=== PATIENT | female | born 1980 | race Caucasian/White ===

== ENCOUNTER 2018-10-28 14:48 | Emergency (ER) | payer BC ==
[2018-10-28 15:39] LABS: Urine Appearance Clear; Urine Blood 3+ (Negative); Urine Color Yellow; Urine Ketones Negative (Negative); Urine Protein Negative (Negative); Urine Red Blood Cell 2+(6-10/hpf) (Absent); Urine Specific Gravity 1.018 (1.010-1.030); Urine Urobilinogen Negative (Negative); Urine White Blood Cell Trace(0-5/hpf) (Absent)
[2018-10-28 16:36] LABS: ABS Basophils 0.1 10^3/ul (0-0.2); ABS Eosinophils 0.1 10^3/ul (0-0.6); ABS Lymphocytes 2.7 10^3/ul (1.0-4.8); ABS Monocytes 0.5 10^3/ul (0-0.8); ABS Neutrophils 6.8 10^3/ul (1.5-7.7); ABS Nucleated RBC 0 10^3/ul; Eosinophil % 1.1 %; Hematocrit 38 % (35-47); Lymphocyte % 26.8 %; Mean Corpuscular HGB Conc 34 g/dl (31-36); Mean Corpuscular Hemoglobin 31 pg (27-31); Mean Corpuscular Volume 93 fL (80-97); Mean Platelet Volume 8.1 fL (7.4-10.4); Nucleated Red Blood Cells % 0.1; Platelet Count 350 10^3/ul (150-450); Red Blood Count 4.14 10^6/ul (4.00-5.40); Red Cell Distribution Width 12 % (10.5-15); White Blood Count 10.2 10^3/ul (3.5-10.8)
[2018-10-28 16:48] LABS: INR 1.02 (0.77-1.02)
[2018-10-28 16:53] LABS: EGFR Non-African American 97.9 (>60)
--- NOTE | 2018-10-28 17:21 | ED ---
GI/ HPI - History of Current Complaint Chief Complaint: EDOBProblems Time Seen by Provider: 10/28/18 17:03 Stated Complaint: ABD PAIN Pain Intensity: 4 - Allergy/Home Medications Allergies/Adverse Reactions: Allergies Allergy/AdvReac Type Severity Reaction Status Date / Time Penicillins Allergy Hives Verified 10/28/18 16:57 Home Medications: Home Medications NK [No Home Medications Reported] 10/28/18 [History Confirmed 10/28/18] PMH/Surg Hx/FS Hx/Imm Hx Infectious Disease History: No Infectious Disease History: Denies: Traveled Outside the [place] in Last 30 Days - Social History Alcohol Use: None Substance Use Type: Reports: None Smoking Status (MU): Former Smoker Physical Exam Vital Signs On Initial Exam: Initial Vitals Temp Pulse Resp BP Pulse Ox 98.7 F 82 18 105/43 99 10/28/18 14:50 10/28/18 14:50 10/28/18 14:50 10/28/18 14:50 10/28/18 14:50 Diagnostics - Vital Signs Vital Signs Temp Pulse Resp BP Pulse Ox 10/28/18 16:14 99.8 F 72 16 91/46 100 10/28/18 14:50 98.7 F 82 18 105/43 99 - Laboratory Lab Results: Lab Results 10/28/18 10/28/18 10/28/18 Range/Units 14:55 16:24 16:24 WBC 10.2 (3.5-10.8) 10^3/ul RBC 4.14 (4.00-5.40) 10^6/ul Hgb 13.0 (12.0-16.0) g/dl Hct 38 (35-47) % MCV 93 (80-97) fL MCH 31 (27-31) pg MCHC 34 (31-36) g/dl RDW 12 (10.5-15) % Plt Count 350 (150-450) 10^3/ul MPV 8.1 (7.4-10.4) fL Neut % (Auto) 66.4 % Lymph % (Auto) 26.8 % [place] % (Auto) 5.1 % Eos % (Auto) 1.1 % Baso % (Auto) 0.6 % Absolute Neuts (auto) 6.8 (1.5-7.7) 10^3/ul Absolute Lymphs (auto) 2.7 (1.0-4.8) 10^3/ul Absolute Monos (auto) 0.5 (0-0.8) 10^3/ul Absolute Eos (auto) 0.1 (0-0.6) 10^3/ul Absolute Basos (auto) 0.1 (0-0.2) 10^3/ul Absolute Nucleated RBC 0 10^3/ul Nucleated RBC % 0.1 INR (Anticoag Therapy) 1.02 (0.77-1.02) APTT 29.6 (26.0-36.3) seconds Sodium (135-145) mmol/L Potassium (3.5-5.0) mmol/L Chloride (101-111) mmol/L Carbon Dioxide (22-32) mmol/L Anion Gap (2-11) mmol/L BUN (6-24) mg/dL Creatinine (0.51-0.95) mg/dL Est GFR ( Amer) (>60) Est GFR (Non-Af Amer) (>60) BUN/Creatinine Ratio (8-20) Glucose (70-100) mg/dL Lactic Acid (0.5-2.0) mmol/L Calcium (8.6-10.3) mg/dL Total Bilirubin (0.2-1.0) mg/dL AST (13-39) U/L ALT (7-52) U/L Alkaline Phosphatase (34-104) U/L Total Protein (6.4-8.9) g/dL Albumin (3.2-5.2) g/dL Globulin (2-4) g/dL Albumin/Globulin Ratio (1-3) Urine Color Yellow Urine Appearance Clear Urine pH 6.0 (5-9) Ur Specific [place] 1.018 (1.010-1.030) Urine Protein Negative (Negative) Urine Ketones Negative (Negative) Urine Blood 3+ A (Negative) Urine Nitrate Negative (Negative) Urine Bilirubin Negative (Negative) Urine Urobilinogen Negative (Negative) Ur Leukocyte Esterase Negative (Negative) Urine WBC (Auto) Trace(0-5/hpf) (Absent) Urine RBC (Auto) 2+(6-10/hpf) A (Absent) Ur Squamous Epith Cells Present A (Absent) Urine Bacteria Absent (Absent) Urine Glucose Negative (Negative) Urine Ascorbic Acid * A (Negative) Blood Type Antibody Screen 10/28/18 10/28/18 10/28/18 Range/Units 16:24 16:24 16:24 WBC (3.5-10.8) 10^3/ul RBC (4.00-5.40) 10^6/ul Hgb (12.0-16.0) g/dl Hct (35-47) % MCV (80-97) fL MCH (27-31) pg MCHC (31-36) g/dl RDW (10.5-15) % Plt Count (150-450) 10^3/ul MPV (7.4-10.4) fL Neut % (Auto) % Lymph % (Auto) % [place] % (Auto) % Eos % (Auto) % Baso % (Auto) % Absolute Neuts (auto) (1.5-7.7) 10^3/ul Absolute Lymphs (auto) (1.0-4.8) 10^3/ul Absolute Monos (auto) (0-0.8) 10^3/ul Absolute Eos (auto) (0-0.6) 10^3/ul Absolute Basos (auto) (0-0.2) 10^3/ul Absolute Nucleated RBC 10^3/ul Nucleated RBC % INR (Anticoag Therapy) (0.77-1.02) APTT (26.0-36.3) seconds Sodium 135 (135-145) mmol/L Potassium 3.7 (3.5-5.0) mmol/L Chloride 104 (101-111) mmol/L Carbon Dioxide 28 (22-32) mmol/L Anion Gap 3 (2-11) mmol/L BUN 9 (6-24) mg/dL Creatinine 0.68 (0.51-0.95) mg/dL Est GFR ( Amer) 118.5 (>60) Est GFR (Non-Af Amer) 97.9 (>60) BUN/Creatinine Ratio 13.2 (8-20) Glucose 90 (70-100) mg/dL Lactic Acid 0.8 (0.5-2.0) mmol/L Calcium 9.4 (8.6-10.3) mg/dL Total Bilirubin 0.30 (0.2-1.0) mg/dL AST 16 (13-39) U/L ALT 16 (7-52) U/L Alkaline Phosphatase 47 (34-104) U/L Total Protein 7.1 (6.4-8.9) g/dL Albumin 4.5 (3.2-5.2) g/dL Globulin 2.6 (2-4) g/dL Albumin/Globulin Ratio 1.7 (1-3) Urine Color Urine Appearance Urine pH (5-9) Ur Specific [place] (1.010-1.030) Urine Protein (Negative) Urine Ketones (Negative) Urine Blood (Negative) Urine Nitrate (Negative) Urine Bilirubin (Negative) Urine Urobilinogen (Negative) Ur Leukocyte Esterase (Negative) Urine WBC (Auto) (Absent) Urine RBC (Auto) (Absent) Ur Squamous Epith Cells (Absent) Urine Bacteria (Absent) Urine Glucose (Negative) Urine Ascorbic Acid (Negative) Blood Type O Positive Antibody Screen Negative Result Diagrams: 10/28/18 16:24 10/28/18 16:24 Lab Statement: Any lab studies that have been ordered have been reviewed, and results considered in the medical decision making process. Discharge - Discharge Plan Referrals: No Primary Care Phys,NOPCP [Primary Care Provider] - - Attestation Statements Document Initiated by Scribe: Yes Documenting Scribe: Katelynn Tafoya Provider For Whom Scribe is Documenting (Include Credential): Dr. Beatriz Venegas MD Scribe Attestation: Katelynn Allen , scribed for Dr. Beatriz Venegas MD on 10/28/18 at 1720.
--- NOTE | 2018-10-28 17:26 | ED ---
Abdominal Pain/Female - HPI Summary HPI Summary: The pt is a 38 y/o female with a presenting to [facility] c/o vaginal bleeding since yesterday night. She is A2. She had a "miscarriage" in August 2018 at approximately 5 weeks, but did not have another cycle until she had a positive test, so she is estimating that this might be 8 weeks. The was confirmed by a positive home test. She has an appointment with her House Father in 2 days but has not seen them yet for this . She notes abd cramping and pain, dark chin blood clots, dizziness, nausea, GUERRERO, pelvic pain and back pain. The discomfort is rated 4/10 in severity. She last changed her pad 2 hours ago. She reports a PMHx of Herpes but denies a hx of ectopic , reproductive surgeries and ovarian cysts. Home Medications Medication Instructions Recorded Confirmed Type NK [No Home Medications Reported] 10/28/18 10/28/18 History - History of Current Complaint Chief Complaint: EDOBProblems Stated Complaint: ABD PAIN Time Seen by Provider: 10/28/18 17:03 Hx Obtained From: Patient Hx Last Menstrual Period: July 2018 ?: Yes - Based on a positive home test Onset/Duration: Sudden Onset, Lasting Hours, Still Present Timing: Constant Severity Initially: Moderate Severity Currently: Mild Pain Intensity: 4 Pain Scale Used: 0-10 Numeric Location: Diffuse - Lower abd Radiates: Yes Radiates to: Back, Other - Pelvis Character: Cramping Aggravating Factor(s): Nothing Alleviating Factor(s): Nothing Associated Signs and Symptoms: Positive: Vaginal Bleeding, Nausea, Other: - GUERRERO Simlar Episode/Dx as:: miscarriage Allergies/Adverse Reactions: Allergies Allergy/AdvReac Type Severity Reaction Status Date / Time Penicillins Allergy Hives Verified 10/28/18 16:57 Home Medications: Home Medications NK [No Home Medications Reported] 10/28/18 [History Confirmed 10/28/18] PMH/Surg Hx/FS Hx/Imm Hx Previously Healthy: No Endocrine/Hematology History: Denies: Hx Diabetes Cardiovascular History: Denies: Hx Hypercholesterolemia, Hx Hypertension Respiratory History: Denies: Hx Asthma History: Reports: Other Problems/Disorders - Hx of Herpes Sensory History: Denies: Hx Deafness - Cancer History Cancer Type, Location and Year: None reported - Surgical History Surgery Procedure, Year, and Place: none Infectious Disease History: No Infectious Disease History: Denies: Traveled Outside the [place] in Last 30 Days - Family History Known Family History: Positive: Other - [place] Negative: Cardiac Disease, Hypertension, Diabetes - Social History Occupation: Employed Full-time Lives: With Family Alcohol Use: Occasionally Substance Use Type: Reports: None Smoking Status (MU): Former Smoker Review of Systems Constitutional: Other - Positive: Dizziness Cardiovascular: Negative Respiratory: Negative Positive: Abdominal Pain, Nausea Positive: no symptoms reported, other - Positive: Pelvic pain, vaginal bleeding with blood clots Musculoskeletal: Other - Positive: Back pain Skin: Negative Positive: Headache Psychological: Normal All Other Systems Reviewed And Are Negative: Yes Physical Exam - Summary Physical Exam Summary: Appearance: Well-appearing, moderate pain distress, well-nourished Skin: Warm, color reflects adequate perfusion, dry Head: Normal Head/Face inspection, atraumatic Eyes: Conjunctiva clear ENT: Normal inspection Neck: Supple, no nodes, no JVD Respiratory: Lungs clear, normal breath sounds, no respiratory distress Cardio: RRR, No murmur, pulses normal, brisk capillary refill Abdomen: Soft, Tender in the LLQ, Uterus non palpable Bowel sounds: Present Musculoskeletal: Strength Intact/ROM intact, no calf tenderness, no edema. Psychological: Normal Neuro: Alert, muscle tone normal, no focal deficit Triage Information Reviewed: Yes Vital Signs On Initial Exam: Initial Vitals Temp Pulse Resp BP Pulse Ox 98.7 F 82 18 105/43 99 10/28/18 14:50 10/28/18 14:50 10/28/18 14:50 10/28/18 14:50 10/28/18 14:50 Vital Signs Reviewed: Yes Diagnostics - Vital Signs Vital Signs Temp Pulse Resp BP Pulse Ox 10/28/18 16:14 99.8 F 72 16 91/46 100 10/28/18 14:50 98.7 F 82 18 105/43 99 - Laboratory Lab Results: Lab Results 10/28/18 10/28/18 10/28/18 Range/Units 14:55 16:24 16:24 WBC 10.2 (3.5-10.8) 10^3/ul RBC 4.14 (4.00-5.40) 10^6/ul Hgb 13.0 (12.0-16.0) g/dl Hct 38 (35-47) % MCV 93 (80-97) fL MCH 31 (27-31) pg MCHC 34 (31-36) g/dl RDW 12 (10.5-15) % Plt Count 350 (150-450) 10^3/ul MPV 8.1 (7.4-10.4) fL Neut % (Auto) 66.4 % Lymph % (Auto) 26.8 % [place] % (Auto) 5.1 % Eos % (Auto) 1.1 % Baso % (Auto) 0.6 % Absolute Neuts (auto) 6.8 (1.5-7.7) 10^3/ul Absolute Lymphs (auto) 2.7 (1.0-4.8) 10^3/ul Absolute Monos (auto) 0.5 (0-0.8) 10^3/ul Absolute Eos (auto) 0.1 (0-0.6) 10^3/ul Absolute Basos (auto) 0.1 (0-0.2) 10^3/ul Absolute Nucleated RBC 0 10^3/ul Nucleated RBC % 0.1 INR (Anticoag Therapy) 1.02 (0.77-1.02) APTT 29.6 (26.0-36.3) seconds Sodium (135-145) mmol/L Potassium (3.5-5.0) mmol/L Chloride (101-111) mmol/L Carbon Dioxide (22-32) mmol/L Anion Gap (2-11) mmol/L BUN (6-24) mg/dL Creatinine (0.51-0.95) mg/dL Est GFR ( Amer) (>60) Est GFR (Non-Af Amer) (>60) BUN/Creatinine Ratio (8-20) Glucose (70-100) mg/dL Lactic Acid (0.5-2.0) mmol/L Calcium (8.6-10.3) mg/dL Total Bilirubin (0.2-1.0) mg/dL AST (13-39) U/L ALT (7-52) U/L Alkaline Phosphatase (34-104) U/L Total Protein (6.4-8.9) g/dL Albumin (3.2-5.2) g/dL Globulin (2-4) g/dL Albumin/Globulin Ratio (1-3) Urine Color Yellow Urine Appearance Clear Urine pH 6.0 (5-9) Ur Specific [place] 1.018 (1.010-1.030) Urine Protein Negative (Negative) Urine Ketones Negative (Negative) Urine Blood 3+ A (Negative) Urine Nitrate Negative (Negative) Urine Bilirubin Negative (Negative) Urine Urobilinogen Negative (Negative) Ur Leukocyte Esterase Negative (Negative) Urine WBC (Auto) Trace(0-5/hpf) (Absent) Urine RBC (Auto) 2+(6-10/hpf) A (Absent) Ur Squamous Epith Cells Present A (Absent) Urine Bacteria Absent (Absent) Urine Glucose Negative (Negative) Urine Ascorbic Acid * A (Negative) Blood Type Antibody Screen 10/28/18 10/28/18 10/28/18 Range/Units 16:24 16:24 16:24 WBC (3.5-10.8) 10^3/ul RBC (4.00-5.40) 10^6/ul Hgb (12.0-16.0) g/dl Hct (35-47) % MCV (80-97) fL MCH (27-31) pg MCHC (31-36) g/dl RDW (10.5-15) % Plt Count (150-450) 10^3/ul MPV (7.4-10.4) fL Neut % (Auto) % Lymph % (Auto) % [place] % (Auto) % Eos % (Auto) % Baso % (Auto) % Absolute Neuts (auto) (1.5-7.7) 10^3/ul Absolute Lymphs (auto) (1.0-4.8) 10^3/ul Absolute Monos (auto) (0-0.8) 10^3/ul Absolute Eos (auto) (0-0.6) 10^3/ul Absolute Basos (auto) (0-0.2) 10^3/ul Absolute Nucleated RBC 10^3/ul Nucleated RBC % INR (Anticoag Therapy) (0.77-1.02) APTT (26.0-36.3) seconds Sodium 135 (135-145) mmol/L Potassium 3.7 (3.5-5.0) mmol/L Chloride 104 (101-111) mmol/L Carbon Dioxide 28 (22-32) mmol/L Anion Gap 3 (2-11) mmol/L BUN 9 (6-24) mg/dL Creatinine 0.68 (0.51-0.95) mg/dL Est GFR ( Amer) 118.5 (>60) Est GFR (Non-Af Amer) 97.9 (>60) BUN/Creatinine Ratio 13.2 (8-20) Glucose 90 (70-100) mg/dL Lactic Acid 0.8 (0.5-2.0) mmol/L Calcium 9.4 (8.6-10.3) mg/dL Total Bilirubin 0.30 (0.2-1.0) mg/dL AST 16 (13-39) U/L ALT 16 (7-52) U/L Alkaline Phosphatase 47 (34-104) U/L Total Protein 7.1 (6.4-8.9) g/dL Albumin 4.5 (3.2-5.2) g/dL Globulin 2.6 (2-4) g/dL Albumin/Globulin Ratio 1.7 (1-3) Urine Color Urine Appearance Urine pH (5-9) Ur Specific [place] (1.010-1.030) Urine Protein (Negative) Urine Ketones (Negative) Urine Blood (Negative) Urine Nitrate (Negative) Urine Bilirubin (Negative) Urine Urobilinogen (Negative) Ur Leukocyte Esterase (Negative) Urine WBC (Auto) (Absent) Urine RBC (Auto) (Absent) Ur Squamous Epith Cells (Absent) Urine Bacteria (Absent) Urine Glucose (Negative) Urine Ascorbic Acid (Negative) Blood Type O Positive Antibody Screen Negative Result Diagrams: 10/28/18 16:24 10/28/18 16:24 Lab Statement: Any lab studies that have been ordered have been reviewed, and results considered in the medical decision making process. - Ultrasound No standard instances Ultrasound Interpretation Completed By: Radiologist - Transvaginal US IMPRESSION : Intrauterine of unknown viability showing an ultrasound age of 6 weeks 0 days (EVANGELISTA = 06/24/2019). Recommend followup ultrasound in 7-10 days to confirm viability. The ED physician reviewed this radiology report. Re-Evaluation - Re-Evaluation First Eval Re-Evaluation Time: 19:50 Change: Unchanged Comment: discussed US results with pt. Pt states bleeding is not much at this time. No significant cramping. Pt declines pelvic exam. Agrees with discharge. Does not want consult with Dr. Torrado, alarm installation technician for OB, right now. Abdominal Pain Fem Course/Dx - Course Course Of Treatment: A 38 year-old F with estimated 8 weeks, positive home test, presents to the ED with a CC of vaginal bleeding and abd cramping since last night. [id number]. A physical exam revealed tenderness in the LLQ and a non-palpable uterus. A transvaginal US reveals intrauterine of unknown viability showing an ultrasound age of 6 weeks 0 days (EVANGELISTA = 2018). Pt is blood type O+, so does not need rhogam. Pt declines pelvic exam in ED, and states her bleeding and cramping are controlled in the ED. Pt wants to follow up with her own OB, not the OB MD alarm installation technician. Patient will be discharged with a final Dx of threatened in early .Pt is agreeable with this plan. Allergies noted. - Diagnoses Differential Diagnosis: Positive: Ectopic , Other - miscarriage, demise Provider Diagnoses: Threatened in early Is Visit Related: Yes Discharge - Sign-Out/Discharge Documenting (check all that apply): Patient Departure - DC - Discharge Plan Condition: Stable Disposition: HOME Patient Education Materials: Threatened Miscarriage (ED) Referrals: Paola Persaud MD [Medical Doctor] - 3 Days (Keep your appointment with [facility] for this Saturday. Dr. Venegas recommends that you need to be seen sooner than Saturday if you have increased bleeding, more than a pad an hour, increased abdominal pain, or weakness, dizziness or near fainting, or any new or worsening symptoms. ) [facility] [Outside] - If Needed Additional Instructions: We have given you a copy of your ultrasound and labs. There is a urine culture pending at the time of discharge. If you need further treatment based on those results we will contact you. Return to the ER if you have any new or worsening symptoms, especially if you have bleeding more than a pad an hour, increased pain, or weakness or dizziness. - Billing Disposition and Condition Condition: STABLE Disposition: Home - Attestation Statements Document Initiated by Scribe: Yes Documenting Scribe: Katelynn Tafoya Provider For Whom Scribe is Documenting (Include Credential): Dr. Beatriz Venegas MD Scribe Attestation: I, Katelynn Tafoya, scribed for Dr. Beatriz Venegas MD on 11/03/18 at 0049. Scribe Documentation Reviewed: Yes Provider Attestation: The documentation as recorded by the scribe, Katelynn Tafoya accurately reflects the service I personally performed and the decisions made by me, Dr. Beatriz Venegas MD Status of Scribe Document: Viewed
[2018-10-28 20:02] VITALS: BP 98/60
== END 2018-10-28 20:02 | disposition home or self-care (01) ==
LOC: ED 14:48
DX: O20.0 Threatened abortion (principal); R11.0 Nausea; R10.32 Left lower quadrant pain; Z3A.01 Less than 8 weeks gestation of pregnancy; Z88.0 Allergy status to penicillin; Z87.891 Personal history of nicotine dependence
CPT/HCPCS: 36415; 76817; 80053; 81003; 81015; 83605; 84144; 84443; 84702; 85025; 85610; 85730; 86850; 86900; 86901; 87086; 99282

== ENCOUNTER 2018-11-05 05:33 | Day surgery (SDC) | payer BC ==
[~2018-11-05 05:33] MED LIST: Buffered Lidocaine 0.9% SYRIN* 5 ML/SYR SYRINGE INTRADERM ONE
[2018-11-05] MEDS ORDERED: Midazolam* 1 MG/ML 2 ML VIAL (2 MG) ONE (06:49)
[2018-11-05] MEDS ORDERED: Propofol* 10 MG/ML 20 ML BTL ONE (06:49)
[2018-11-05] MEDS ORDERED: Lidocaine 2% PF * 5 ML VIAL ONE (06:49)
[2018-11-05] MEDS ORDERED: fentaNYL* 50 MCG/ML 2 ML VIAL (100 MCG VIAL) ONE (06:50)
[2018-11-05] MEDS ORDERED: DOXYcycline IV* 200 MG in NS 0.9% 250 ML* 250 ML IVPB ONE (07:00)
[2018-11-05] MEDS ORDERED: Methylergonovine INJ* 0.2 MG/ML 1ML AMP ONE (07:08)
[2018-11-05] MEDS ORDERED: Silver Nitrate/Potassium Nitr* 1 EA STICK ONE (07:08)
[2018-11-05] MEDS ORDERED: Propofol* 500 MG/50 ML BTL ONE (07:19)
[2018-11-05] MEDS ORDERED: Morphine PCA ADULT* 5 MG/ML 30 ML ONE (07:29)
[2018-11-05] MEDS ORDERED: Ketorolac INJ* 30 MG/ML 1 ML VIAL ONE (09:16)
[2018-11-05] MEDS ORDERED: Ondansetron INJ* 2 MG/ML VIAL ONE (09:16)
[2018-11-05] MEDS ORDERED: fentaNYL* 50 MCG/ML 2 ML VIAL (100 MCG VIAL) IV PRN (09:20)
[2018-11-05] MEDS ORDERED: Acetaminophen TAB* 325 MG PO PRN (09:20)
[2018-11-05] MEDS ORDERED: Naloxone* 0.4 MG/ML 1 ML VIAL IV PRN (09:20)
[2018-11-05 10:50] VITALS: BP 95/57
--- NOTE | 2018-11-06 19:54 | OP ---
DATE OF OPERATION: 11/05/18 [facility] DATE OF : 84 SURGEON: Kandy Morales MD ANESTHESIOLOGIST: Dr. Kirkland. ANESTHESIA: General. PRE-OP DIAGNOSIS: Incomplete . POST-OP DIAGNOSIS: Incomplete . OPERATIVE PROCEDURE: Suction, dilatation and curettage. INDICATIONS: This patient was a 38-year-old, 5, para 1, who reported initiating a spontaneous about 4 days ago on Saturday. The patient had intense strong cramps and heavy bleeding and passed a fairly large amount of tissue. However, the bleeding was fairly persistent, mild to moderate. She was seen in the office for followup and ultrasound was notable for absence of the previously seen gestational sac but there appeared to be some retained products of conception. Considering this, the patient was advised to proceed with evacuation of the uterine contents in the operating room. She was scheduled for this morning and consent was signed. ESTIMATED BLOOD LOSS: Minimal. URINE OUTPUT: 100 cc. IV FLUIDS: 600 cc lactated Ringer's. MATERIALS TO LAB: Products of conception. FINDINGS: Large approximately 3 x 4 cm piece of tissue consistent with products of conception in the cervical os. Smaller amount of tissue was removed from the uterine cavity. COMPLICATIONS: None. DESCRIPTION OF PROCEDURE: The risks, benefits, and alternatives were described to the patient and informed consent was obtained. The patient was taken to the operating room with IV running where general anesthesia was induced and found to be adequate. The patient was prepped and draped in a normal sterile fashion in the high lithotomy position [facility]. A time-out was performed. The bladder was emptied. A bivalve speculum was placed in the vagina and the cervix was easily visualized with a large portion of tissue inside it. Polyp forceps were used to gradually tease the tissue out of the cervix and this was handed off for specimen. The anterior cervix was then grasped with a ring forceps and a size 8 curved suction curette was advanced through the cervix and into the uterine cavity without difficulty. Suction was activated and a small amount of additional tissue was obtained along with a small amount of blood and fluid. A sharp curettage was then performed gently using a medium banjo curette. Good cry was noted in all 4 quadrants with no remaining tissue noted. The forceps were removed from the cervix and the speculum was then removed. Bleeding was minimal at that time. The patient was returned to the supine position and allowed to awaken. The patient tolerated the procedure well. Sponge, lap, and needle counts were correct x2. [id number]/[facility] #: [id number] [facility]
== END 2018-11-05 11:18 | disposition home or self-care (01) ==
LOC: OR 05:33
PROVIDERS: ATTEND Obstetrics & Gynecology
DX: O02.1 Missed abortion (principal)
CPT/HCPCS: 81229; 88305; A9270-GY; J1885; J2210; J2250; J2270; J2405; J2704; J3010

== ENCOUNTER 2019-09-18 10:05 | Inpatient (IN) | payer BC ==
--- OUTSIDE RECORDS SUMMARY | 2019-09-18 10:19 | XMS REPORT | Summary of Care ---
:1980 Author Organization [facility] Address [address] [place] [address] Care Team Providers Name Role Phone Isabel Arriaza MD Primary Care Provider Reason for Visit Reason Comments Malaise pt states "gaspy" cough and fatigued Encounter Details Date Type Department Care Team Description 09/16/2019 Office Visit Bow Bulmaro, Flores, Flu-like symptoms Practice PA-C (Primary Dx) [address] [place] [address] [place] [address] [phone] Allergies Active Allergy Reactions Severity Noted Date Comments Penicillins Hives Medium 03/20/2018 documented as of this encounter (statuses as of 09/16/2019) Medications Medication Sig Dispensed Refills Start Date End Date Status Take 1 Tab by 30 Tab 11 03/20/2018 Active Fhxbocky-Wwi-Pp-FA mouth DAILY. ( VITAMINS) 0.8 MG Oral TabIndications: Visit for gynecologic examination oseltamivir (TAMIFLU) Take 1 Cap by 10 Cap 0 09/16/2019 Active 75 MG Oral Cap mouth TWICE DAILY. documented as of this encounter (statuses as of 09/16/2019) Active Problems No known active problemsdocumented as of this encounter (statuses as of 2018) Immunizations Name Administration Dates Next Due Influenza (IM) Preservative Free 09/01/2019 documented as of this encounter Social History Tobacco Use Types Packs/Day Years Used Date Never Smoker Smokeless Tobacco: Never Used Alcohol Use Drinks/Week oz/Week Comments Yes 7 Glasses of wine 7.0 Sex Assigned at Date Recorded Not on file Job Start Date Occupation Industry Not on file Not on file Not on file Travel History Travel Start Travel End No recent travel history available. documented as of this encounter Last Filed Vital Signs Vital Sign Reading Time Taken Comments Blood Pressure 110/68 09/16/2019 3:23 PM EDT Pulse 96 09/16/2019 3:23 PM EDT Temperature 37.4 09/16/2019 3:23 PM EDT C (99.4 F) Respiratory Rate - - Oxygen Saturation 98% 09/16/2019 3:23 PM EDT Inhaled Oxygen Concentration - - Weight 63.5 kg (140 lb) 09/16/2019 3:23 PM EDT Height 154.9 cm (5' 1") 09/16/2019 3:23 PM EDT Body Mass Index 26.45 09/16/2019 3:23 PM EDT documented in this encounter Patient Instructions Patient InstructionsDoFlores walker PA-C - 09/16/2019 3:20 PM EDTReassured patient most likely viral cold Did flu nasal swab -- will call patient tomorrow with results Escribed Tamiflu, 1 pill twice daily x 5 days -- wait for flu swab results before starting Avoid creamy foods and drink Rest, gargle with warm salt water Push water, soup, juice, tea with honey/lemon OTC Tylenol/Ibuprofen for fever/pain Call if not improving or with any questions or concerns F/U with OB documented in this encounter Progress Notes Flores Chamberlain PA-C - 09/16/2019 3:20 PM EDT PATIENT: Geraldine Merino : 1980 DATE OF SERVICE: 09/16/2019 REFERRING PRACTITIONER: Abraham PRIMARY CARE PROVIDER: Isabel Arriaza CHIEF COMPLAINT: Chief Complaint Patient presents with Malaise pt states "gaspy" cough and fatigued Subjective HISTORY OF PRESENT ILLNESS: Geraldine Merino is a 39-y.o. female who presents with fatigue, mild dry coughing x 3-4 hours Denies nasal congestion, sore throat, stuffy ears Feeling alittle nauseated Is 38 WEEKS Had flu vaccine this year 10 days ago Has not tried any OTC cold meds Wants flu testing, last year flu came on very quickly Denies fever, chills, nausea, vomiting, diarrhea, chest pains, SOB Past Medical History: Diagnosis Date History of PCR DNA positive for HSV1 genital, on swab, denies history of any clinical herpes. Hyperlipidemia since childhood No past surgical history on file. Family History Problem Relation Age of Onset No Known Problems Mother Cancer Father lymphoma Heart Father heart valve surgery No Known Problems Daughter Arthritis Brother fibromyalgia, chronic fatigue Current Outpatient Medications Medication Sig Xwcdannw-Iiw-Bb-FA ( VITAMINS) 0.8 MG Oral Tab Take 1 Tab by mouth DAILY. No current facility-administered medications for this visit. Allergies Allergen Reactions Penicillins Hives Social History Socioeconomic History Marital status: Spouse name: Not on file Number of children: Not on file Years of education: Not on file Highest education level: Not on file Occupational History Not on file Social Needs Financial resource strain: Not on file Food insecurity: Worry: Not on file Inability: Not on file Transportation needs: Medical: Not on file Non-medical: Not on file Tobacco Use Smoking status: Never Smoker Smokeless tobacco: Never Used Substance and Sexual Activity Alcohol use: Yes Alcohol/week: 7.0 standard drinks Types: 7 Glasses of wine per week Drug use: No Sexual activity: Yes Partners: Male Lifestyle Physical activity: Days per week: Not on file Minutes per session: Not on file Stress: Not on file Relationships Social connections: Talks on phone: Not on file Gets together: Not on file Attends episcopalian service: Not on file Active member of club or organization: Not on file Attends meetings of clubs or organizations: Not on file Relationship status: Not on file Intimate partner violence: Fear of current or ex partner: Not on file Emotionally abused: Not on file Physically abused: Not on file Forced sexual activity: Not on file Other Topics Concern Back Care Not Asked Bike Helmet Not Asked Blood Transfusions Not Asked Caffeine Concern Not Asked Exercise No Hobby Hazards Not Asked International Travel Not Asked Service Not Asked Occupational Exposure Not Asked Seat Belt Not Asked Self-Exams Not Asked Sleep Concern Not Asked Special Diet No Stress Concern Yes Weight Concern Not Asked Social History Narrative Works at Lives with and daughter. Moved here from [place] REVIEW OF SYSTEMS: Skin: negative skin lesions Eyes: negative visual blurring Ears/Nose/Throat: negative rhinorrhea, sore throat, sinus pressure, post nasal drip Respiratory: positive dry mild cough Cardiovascular: negative chest pain Gastrointestinal: negative abdominal pain, constipation, diarrhea, vomiting. Positive mild nausea Genitourinary: negative burning on urination, dysuria or vaginal discharge Musculoskeletal: negative arthritis/joint pain Neurologic: negative numbness or tingling of feet or hands Psychiatric: negative anxiety Hematologic/Lymphatic/Immunologic: negative allergies Endocrine: negative diabetes or hot flashes/sweats Objective PHYSICAL EXAMINATION: VITALS: BP 110/68 (BP Location: Right arm, Patient Position: Sitting) | Pulse 96 | Temp 99.4 F (37.4 C) | Ht 5' 1" (1.549 m) | Wt 140 lb (63.5 kg) | SpO2 98% | BMI 26.45 kg/m Body mass index is 26.45 kg/m. General appearance: alert, mild distress, cooperative, oriented times 3 Skin: Skin color, texture, turgor normal. No rashes or lesions. Head: Normocephalic. No masses, lesions, tenderness or abnormalities Eyes: conjunctivae/corneas clear. PERRL, EOM's intact. Ears: TMs and canals normal bilaterally Nose/Sinuses: mucosa normal, no nasal discharge Oropharynx: oropharyngeal normal Neck: Neck supple, FROM. No cervical or supraclavicular adenopathy. Lungs: Lungs clear. Chest symmetrical. Normal breath sounds. Heart: RRR. No murmur, clicks or gallops. No peripheral edema . IMPRESSION: ICD-9-CM ICD-10-CM 1. Flu-like symptoms 780.99 R68.89 FLU A/FLU B/RSV PCR ASSAY (TESTED AT [facility] ONLY) Plan PLAN: PATIENT IS 38 WEEKS Reassured patient most likely viral cold Did flu nasal swab -- will call patient tomorrow with results Escribed Tamiflu, 1 pill twice daily x 5 days -- wait for flu swab results before starting Avoid creamy foods and drink Rest, gargle with warm salt water Push water, soup, juice, tea with honey/lemon OTC Tylenol/Ibuprofen for fever/pain Call if not improving or with any questions or concerns F/U with OB Author: Flores Chamberlain PA-C 09/16/2019 15:19 documented in this encounter Plan of Treatment Name Type Priority Associated Diagnoses Order Schedule FLU A/FLU B/RSV PCR Lab Routine Flu-like symptoms 1 Occurrences starting ASSAY (TESTED AT COURT 09/16/2019 until 03/14/2020 LAB ONLY) Health Maintenance Due Date Last Done Comments DEPRESSION SCREENING 09/16/2020 09/16/2019 PAP SMEAR 03/20/2021 03/20/2018 LIPID DISORDER SCREENING 03/20/2023 03/20/2018 INFLUENZA VACCINE Completed 09/01/2019 HPV IMMUNIZATION SERIES Aged Out No longer eligible based on patient's age to complete this topic MENINGOCOCCAL VACCINE IMM Aged Out No longer eligible based on patient's age to complete this topic PNEUMOCOCCAL 0-64 YRS Aged Out No longer eligible based on patient's age to complete this topic documented as of this encounter Results Not on filedocumented in this encounter Visit Diagnoses Diagnosis Flu-like symptoms - Primary Influenza with other respiratory manifestations documented in this encounter Insurance Payer Benefit Plan / Subscriber ID Effective Dates Phone Address Type Group BRIDGETTE GAMBOA xxxxxxxxxxxx 2018-Present Bridgette BROWN PPO documented as of this encounter
--- NOTE | 2019-09-18 10:52 | ED ---
- HPI Summary HPI Summary: This patient is a 39 year old female presenting to [facility] with a chief complaint of fever since yesterday. She is 38 weeks . She reports bodyaches, chills, abdominal cramping and difficulty breathing. She reports cough, photophobia, and sore throat. She stats she mostly experiencing her abdominal cramping when the baby is moving and that it just feels like she is extra sensitive. She states she went to her PCP and she tested negative for influenza. Pt denies any erythema of eyes, CP, N/V, dysuria, hematuria, myalgia , edema, rash, or dizziness. - History of Current Complaint Chief Complaint: EDFever Stated Complaint: HIGH FEVER/POSS DEHYDRATION 38 WEEKS PREG PER PT Hx Obtained From: Patient Onset/Duration: Started Days Ago Timing: Constant Pain Intensity: 0 Character: Cramping - Assessment Hx : 6 SAB: 3 IEA: 1 - Additional Pertinent History Maternal Blood Type and Rh: O Positive - Allergies/Home Medications Allergies/Adverse Reactions: Allergies Allergy/AdvReac Type Severity Reaction Status Date / Time Penicillins Allergy Severe Hives Verified 09/18/19 10:13 Home Medications: Home Medications Acetaminophen TAB* [Tylenol TAB*] 325 mg PO Q4H PRN 09/18/19 [History Confirmed 09/18/19] Vitamin TAB* 1 tab PO DAILY 09/18/19 [History Confirmed 09/18/19] PMH/Surg Hx/FS Hx/Imm Hx Endocrine/Hematology History: Denies: Hx Diabetes Cardiovascular History: Denies: Hx Hypercholesterolemia, Hx Hypertension Respiratory History: Denies: Hx Asthma History: Reports: Other Problems/Disorders - Hx of HSV Sensory History: Denies: Hx Contacts or Glasses, Hx Deafness, Hx Hearing Aid Opthamlomology History: Denies: Hx Contacts or Glasses Neurological History: Reports: Hx Migraine - hx of - none recently Psychiatric History: Reports: Hx Depression - situational- miscarraige - Cancer History Cancer Type, Location and Year: None reported Hx Chemotherapy: No - Surgical History Surgery Procedure, Year, and Place: Elective Hx Anesthesia Reactions: No Infectious Disease History: No Infectious Disease History: Denies: Traveled Outside the [place] in Last 30 Days - Family History Known Family History: Positive: Other - CA Negative: Cardiac Disease, Hypertension, Diabetes - Social History Alcohol Use: Occasionally Substance Use Type: Reports: None Smoking Status (MU): Former Smoker Review of Systems Positive: Fever, Chills, Other - Body Aches Positive: Photophobia. Negative: Erythema Negative: Sore Throat Negative: Chest Pain Positive: Shortness Of Breath, Cough Positive: Abdominal Pain. Negative: Vomiting, Nausea Negative: dysuria, hematuria Negative: Myalgia, Edema Negative: Rash Neurological: Other - Dizziness All Other Systems Reviewed And Are Negative: No Physical Exam - Summary Physical Exam Summary: Constitutional: Well-developed, Well-nourished, Alert. (-) Distressed Skin: Warm, Dry HENT: Normocephalic; Atraumatic. Dry oral mucosa. Eyes: Conjunctiva normal Neck: Musculoskeletal ROM normal neck. (-) JVD, (-) Stridor, (-) Tracheal deviation Cardio: Rhythm regular, rate normal, Heart sounds normal; Intact distal pulses; The pedal pulses are 2+ and symmetric. Radial pulses are 2+ and symmetric. (-) Murmur Pulmonary/Chest wall: Effort normal. (-) Respiratory distress, (-) Wheezes, crackles in the right middle lung field. Abd: Soft, (-) tenderness, (-) Distension, (-) Guarding, (-) Rebound Musculoskeletal: (-) Edema Lymph: (-) Cervical adenopathy Neuro: Alert, Oriented x3 Psych: Mood and affect Normal - Physical Exam Triage Information Reviewed: Yes Vital Signs On Initial Exam: Temp Pulse Resp BP Pulse Ox 100.7 F 108 16 95/64 96 09/18/19 10:08 09/18/19 10:08 09/18/19 10:08 09/18/19 10:08 09/18/19 10:08 Vital Signs Reviewed: Yes Procedures - Sedation Patient Received Moderate/Deep Sedation with Procedure: No Diagnostics - Vital Signs Vital Signs Temp Pulse Resp BP Pulse Ox 09/18/19 10:08 100.7 F 108 16 95/64 96 - Laboratory Result Diagrams: 09/18/19 11:39 09/18/19 11:39 Lab Statement: Any lab studies that have been ordered have been reviewed, and results considered in the medical decision making process. - Radiology CXR Radiology Interpretation Completed By: Radiologist Summary of Radiographic Findings: Right lower lobe airspace opacification concerning for pneumonia. ED Provider has reviewed this report. Course/Dx - Course Course Of Treatment: This patient is a 39 year old female presenting to [facility] with a chief complaint of fever since yesterday. Physial exam revealed crackles in the right middle lung. Labs were unremarkable, except WBC is 11.3, Hgb 11.7, Hct 34 L, Absolute Neuts 9.8 H, Absolute Lymphs 0.8 L, Sodium 129 L, Calcium 83 L, Alkaline Phosphatase 211 H, CRP 147.50 H, Total Protein 6.2 L, Albumin 3.0 L , Albumim/Globulin Ratio 0.9 L, Lipase <10 L, Urine Ketones 1+ A. Urine Blood 2 + A, Ur Squamous Epth Cells Present A. CXR revealed Right lower lobe airspace opacification concerning for pneumonia. The patient was administered Zithromax, Tylenol, and NS in the ED. Dr. Wilkins, Hospitalist, accepted the patient for admission. This plan was discussed with the patient and she was agreeable with this plan. - Diagnoses Provider Diagnoses: , Community acquired pneumonia, Dehydration Discharge ED - Sign-Out/Discharge Documenting (check all that apply): Patient Departure - Admission - Discharge Plan Condition: Stable Disposition: ADMITTED TO [facility] Referrals: Isabel Arriaza MD [Primary Care Provider] - - Attestation Statements Document Initiated by Scribe: Yes Documenting Scribe: George Abreu Provider For Whom Staci is Documenting (Include Credential): Pool Vance MD Scribe Attestation: George Allen, scribed for Pool Vance MD on 09/18/19 at 1546. Status of Scribe Document: Ready
[2019-09-18] MEDS ORDERED: Acetaminophen TAB* 325 MG PO ONE ×2 (11:14→11:30)
[2019-09-18] MEDS ORDERED: NS 0.9% 1000 ML** 1,000 ML IV ONE ×2 (11:14→11:30)
[2019-09-18 11:55] LABS: ABS Lymphocytes 0.8 10^3/ul (1.0-4.8); ABS Monocytes 0.6 10^3/ul (0-0.8); ABS Neutrophils 9.8 10^3/ul (1.5-7.7); Hematocrit 34 % (35-47); Hemoglobin 11.7 g/dL (12.0-16.0); Lymphocyte % 7.4 %; Mean Corpuscular HGB Conc 34 g/dL (31-36); Mean Corpuscular Hemoglobin 31 pg (27-31); Mean Corpuscular Volume 90 fL (80-97); Mean Platelet Volume 8.9 fL (7.4-10.4); Platelet Count 278 10^3/uL (150-450); Red Blood Count 3.78 10^6 /uL (3.70-4.87); Red Cell Distribution Width 14 % (10-15); White Blood Count 11.3 10^3/uL (3.5-10.8)
[2019-09-18 12:11] LABS: ALT 11 U/L (7-52); AST 18 U/L (13-39); Albumin/Globulin Ratio 0.9 (1-3); Alkaline Phosphatase 211 U/L (34-104); Anion Gap 6 mmol/L (2-11); BUN/Creatinine Ratio 9.9 (8-20); Blood Urea Nitrogen 7 mg/dL (6-24); CO2 Carbon Dioxide 22 mmol/L (22-32); Calcium 8.3 mg/dL (8.6-10.3); Chloride 101 mmol/L (101-111); EGFR African American 112.1 (>60); EGFR Non-African American 92.6 (>60); Globulin 3.2 g/dL (2-4); Glucose 83 mg/dL (70-100); Potassium 3.9 mmol/L (3.5-5.0); Sodium 129 mmol/L (135-145); Total Protein 6.2 g/dL (6.4-8.9)
[2019-09-18 12:25] LABS: Influenza A Molecular NEGATIVE (Negative); Influenza B Molecular NEGATIVE (Negative)
[2019-09-18 13:17] LABS: Urine Appearance Clear; Urine Bacteria Absent (Absent); Urine Bilirubin Negative (Negative); Urine Blood 2+ (Negative); Urine Color Yellow; Urine Glucose Negative (Negative); Urine Ketones 1+ (Negative); Urine Nitrite Negative (Negative); Urine Protein Negative (Negative); Urine Red Blood Cell 2+(6-10/hpf) (Absent); Urine Specific Gravity 1.014 (1.010-1.030); Urine Squamous Epithelial Cell Present (Absent); Urine Urobilinogen Negative (Negative); Urine White Blood Cell Trace(0-5/hpf) (Absent)
[2019-09-18] MEDS ORDERED: Azithromycin 500 mg/250 ml NS 500 MG/250 ML BAG IVPB ONE (13:24)
[2019-09-18] MEDS ORDERED: NS 0.9% 500 ML* 500 ML IV ONE (15:46)
--- NOTE | 2019-09-18 16:23 | CONSULT ---
Consult Consult: OBGYN CONSULT: Pt is a 39 y/o at 38w2d with SIUP, complicated by Hx of IUGR in past , AMA, HSV, partial placenta previa which is now resolved. She presented to the ED today after suffering from cough, cold, congestion, malaise symptoms x 2-3 days with worsening fever which she has been treating with Tylenol with only partial relief. She was seen by her PCP in the outpatient setting and underwent Flu swab which was negative. Flu swab was repeated today in the ED and is again negative. On CXR she was found to have Right Lower Lobe pneumonia. She has no obstetric complaints at this time. She denies vaginal bleeding, leakage of fluid or painful/regular contractions. She endorses good movement. Hx: IUGR in past gestation - current gestation growth is 17%, which is WNL, pt is being followed closely in outpatient setting for this. AMA - pt will be 39 at time of delivery HSV - remote hx of HSV with single outbreak several years ago, no active outbreak, on valtrex ppx Partial previa noted early in , previa resolved on 20wk USN PMH: Problem List: Advanced maternal age Blood Type: O Pos. Menstrual History:Menarche: Started At Age 16.Period Interval: Cycles Approximately Every 28 Days.Period Duration: Normally Last 3 Days. Self Care: Health Maintenance: Immunizations - Hep B, HPV, MMR, varicella Past Pregnancies 1:Outcome: Induced - (2010). 2:Outcome: Live - (2014), Gestational age: 40 wks, Labor: Greater than 32 hrs - 3 days, weight: 5 pounds, Sex: female, Delivery: NVSD, Complications: IUGR, [place]. 3:Outcome: 1st trimester miscarriage - (06/2018). 4:Outcome: 1st trimester miscarriage - (08/2018). 5:Outcome: 1st trimester miscarriage - (11/2018) had D&C. 6:Current - LMP 12/24/18. Medical Problems: No Current Problems Surgical Hx: Dilation & Curettage - (11/2018) Reviewed and updated. Family Hx: Father: Lymphoma - in remission. Mother: A&W. Daughter 1: A&W. Brother 1: autoimmune - chronic fatigue syndrome, fibromyalgia. Paternal Grandmother: due to Breast Cancer. Paternal Grandfather: due to Old Age. Maternal Grandmother: due to Parkinsons. Maternal Grandfather: Heart Disease. due to Cancer. Reviewed and updated. 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 Personal Habits:Cigarette Use: Former Cigarette Smoker - quit many years ago.Alcohol: Does Not Drink Alcohol.Drug Use: Does Not Use Drugs.Daily Caffeine : Consumes on average 1 cup of coffee per day.Exercise Type: Does not exerciseSeat Belt Car: Always uses seat belt Sexual Hx:STDS: Herpes - HSV -1 with single vaginal outbreak years ago. Reviewed and updated. O: T 97.7 HR 104 RR 28 Oz [place] 97% BP 106/64 Gen: nad, aaox3 CV: slight tachycardia, regular rythm RR: slight tachypnea Abd: gravid, soft, nd, nttp, negative fundal tenderness Ext: warm, nttp, neg aspen's NST at bedside: FHT: 135bpm, moderate variabilty, positive accelerations, no heart decelerations Sc[place]mon: rare irregular contractions lab review: LABORATORY RECORD Initial Bloodwork Date Results Reviewed by Blood Type 03/06/2019 O+ Antibody Screen 03/06/2019 negative Hgb/Hct 03/06/2019 12.9, 37 Platelets 03/06/2019 361 Rubella 03/06/2019 immune Syphilis IgG 03/06/2019 non-reactive HBsAg 03/06/2019 negative HIV 03/06/2019 negative Lead 03/06/2019 <1 Hgb A1c 03/06/2019 5.2 Parvovirus B19 IgG, IgM Urine, Pap,GC/chlamydia testingDateResultsReviewed by Urine Culture 03/04/2019 no growth Pap Smear declines until post Gonorrhea 04/01/2019 negative Chlamydia 04/01/2019 negative Urine Drug Screen 05/19/2019 Thyroid Function TestingDateResultsTrimesterReviewed by TSH, free T4 03/06/2019 0.27/.891st (0.1-2.5) TSH, Free T407/14/2019 1.23/.713rd (0.3-3.0)LS Genetic testing/ScreeningDateResultsReviewed by NIPT: 03/06/2019 Normal XY KP MSAFP 04/08/2019 Normal KP Carrier TestingDateResultsReviewed by Expanded Carrier Panel 03/06/2019 Neg for mutations KP 24-28 Week LabsDateResultsReviewed by Hgb/Hct 07/14/2019 11.8/36 AM Platelets 07/14/2019 316 AM 1hr GCT 07/14/2019 126 AM 35-37 Week LabsDateResultsReviewed by GBS 09/04/2019 negative AM A/P: Pt is a 39 y/o at 38w2d with SIUP, current uncomplicated , diagnosed with Pneumonia in Emergency Department today. Pt reviewed with hospitalist who agrees to to admit to Hospitalist service for Pneumonia therapy , IVF repletion, anti-pyretics and observation overnight. - Reactive NST performed at the bedside while pt in ED. Pt is without Obstetric complaints at this time. There is no indication for delivery or continuous monitoring at this time. - OB team will follow patient closely while in house and perform Q shift NST' s. Appreciate Hospitalist team willingness to admit and Tx pt's pneumonia. - continue PNV - continue Valtrex 500mg BID ppx - Reviewed with Hospitalist that Azithromycin and Ceftriaxone is appropriate therapy for pneumonia and potential benefits of treatment of Pneumonia with these agents far outweighs risk of Abx exposure in . Tom Nickerson, OBCHRISSY
--- NOTE | 2019-09-18 17:23 | HP ---
CC: Dr. Arriaza; Dr. Nickerson * HISTORY AND PHYSICAL: ADDENDUM: DATE OF ADMISSION: 09/18/19 PRIMARY CARE PROVIDER: Dr. Arriaza. CONSULTING OB-CERTIFIED LACTATION EDUCATOR: Dr. Nickerson. HISTORY OF PRESENT ILLNESS: The case was reviewed and discussed with Deidre Olivares NP. Ms. Merino is a 39-year-old lady who is 38 weeks , who presented to the emergency room with complaints of fever, body aches, chills, dry cough, and sore throat. She was found to have a right lower lobe infiltrate and a presentation compatible with pneumonia. PHYSICAL EXAMINATION GENERAL: She is lying in the ED stretcher, in no acute distress. VITAL SIGNS: Stable with a temperature of 97.7, heart rate is 88, respiratory rate is 21, oxygen saturation 95% on room air, blood pressure of 95/56. CHEST: Reveals breath sounds present bilaterally with crackles in the right base. CVS: Reveals normal S1, S2 with regular rate and rhythm. IMPRESSION AND PLAN: She was seen by OB and had a nonstress obtained with heart rate baseline at 135 with spontaneous accelerations up to 155. She was noted to have occasional mild contractions, irregular and Dr. Nickerson was present during that evaluation. His recommendation was for the patient to be admitted for IV hydration, start ceftriaxone and Zithromax for her pneumonia and OB service will continue to follow the patient. I am in agreement with the current management. [id number]/CPS #: [id number] MTDD
--- NOTE | 2019-09-18 17:23 | HP ---
ATTENDING ADDENDUM NOW INCLUDED ON THIS REPORT CC: Dr. Arriaza; Dr. Nickerson * HISTORY AND PHYSICAL: DATE OF ADMISSION: 09/18/19 PROVIDER: Deidre Olivares NP PRIMARY CARE PROVIDER: Dr. Arriaza. ATTENDING PHYSICIAN WHILE IN THE HOSPITAL: Dr. Maricel Valadez * (dictated by Deidre Olivares NP). CHIEF COMPLAINT: Fever. HISTORY OF PRESENT ILLNESS: Ms. Merino is a 39-year-old female that is 38 weeks , who presented to the emergency room with complaints of fevers since Saturday. The patient was seen at urgent care 3 days ago for a fever, at that time had flu that was negative. The patient continued to have fever. She reports that she is feeling fatigued. She does report a cough with deep breath and decreased energy. Due to the continued fever, the patient presented to the emergency room for further evaluation. The patient does report some chills, fever, cough with deep breath, and shortness of breath. She denies any chest pain, edema, hemoptysis. She denies any nausea, vomiting, diarrhea, abdominal pain. She denies any gross hematuria or dysuria. Denies any focal weakness or sensory loss, visual complaints, dysphagia, arthralgias, myalgias, rashes, lesions, open sores, psychosis or anxiety. While in the emergency room, the patient had routine lab work drawn. She was found to have a slightly elevated white count of 11.3. She had a fever of 100.7 on arrival. She had a chest x-ray that showed right lower lobe pneumonia. Due to these findings, Hospital Medicine was asked to see and evaluate her for admission. PAST MEDICAL HISTORY: 38 weeks . PAST SURGICAL HISTORY: None. HOME MEDICATIONS: 1. vitamins 1 tablet daily. 2. Tylenol as needed for pain. ALLERGIES: To PENICILLIN, hives. FAMILY HISTORY: Father with a history of hypertension. No reported history of diabetes. Father with lymphoma. SOCIAL HISTORY: The patient denies any tobacco, alcohol, or illicit drug use. She is . Surrogate decision maker in the event she is unable to make her own decisions is her . She is a full code. REVIEW OF SYSTEMS: A 14-point review of systems was completed. All pertinent positives were mentioned in the HPI. Otherwise were negative. PHYSICAL EXAMINATION GENERAL: At this time, Ms. Merino is a 39-year-old female. She is alert and oriented, appears fatigued, resting on the stretcher in the emergency room. She is in no acute distress. She is well developed, well nourished. VITAL SIGNS: Blood pressure 95/56, heart rate 88, respirations are 20, O2 saturation 95%, temperature was 98.8. HEENT: Head is atraumatic, normocephalic. Eyes: EOMs are intact. Sclerae anicteric and not pale. Oral mucosa appeared to be moist. NECK: Supple. LUNGS: Clear. They are diminished in the right base. CARDIAC: S1, S2. Regular rate and rhythm. No murmurs, rubs, or gallops. ABDOMEN: Rounded, soft, nontender. She has a abdomen. She had a nonstress in the emergency room that was normal. EXTREMITIES: She is able to move all 4 extremities. Pedal pulses are +2 bilaterally. There is no clubbing or cyanosis. NEUROLOGIC: She is awake, alert, oriented x3. Speech is clear. Thought process is intact. There are no gross focal deficits. DIAGNOSTIC STUDIES/LAB DATA: WBCs are 11.3, RBCs 3.78, hemoglobin 11.7, hematocrit 34, platelet count 278. Sodium 129, potassium 3.9, chloride 101, carbon dioxide was 22, anion gap was 6, BUN 7, creatinine 0.71, glucose 83, lactic acid 1.1, calcium 8.3. ASTs are 18, ALTs are 11, alkaline phosphatase is 211. C- reactive protein 147.5. Lipase was less than 10. Urine was within normal limits with exception ketones were 1+, blood was 2+, wbc's were 2+, and squamous epithelial cells were present. Flu A and B were negative. ASSESSMENT AND PLAN: Ms. Merino is a 39-year-old female that is 38 weeks , who presented to the emergency room with complaints of fever and was found to have right lower lobe pneumonia. She will be admitted under observation for: 1. Fever, right lower lobe pneumonia. The patient was found to have right lower lobe pneumonia. I will send blood cultures. She will have a urine for legionella and Strep pneumoniae. I will place her azithromycin and ceftriaxone as per recommendations from OB-DAY CARE SUPERVISOR, Dr. Nickerson. She has received 2 L of normal saline in the emergency room. I will give her 500 cc more of IV fluids at 50 cc per hour as we should need to use caution as patients that are with pneumonia can develop pulmonary edema, so we will proceed with fluid resuscitation with caution. She can continue to have Tylenol 650 mg p.o. q.4 hours as needed for fever or pain. 2. Third trimester . Dr. Nickerson from [facility] will follow along in her care during this hospitalization. She did have a nonstress that was within normal limits. We will continue to monitor for any signs of labor and advise OB- DAY CARE SUPERVISOR for any of these signs. 3. Diet: She can have a regular diet. 4. Code status: She is a full code. 5. DVT prophylaxis: I will place her on SCDs. TIME SPENT: Time spent on this admission was 60 minutes, greater than half that time was spent at the bedside reviewing events leading thus far to her hospitalization, performing physical exam, and reviewing my plan of care. I have discussed this with my attending, Dr. Maricel Valadez; she is in agreement with my plan. DEIDRE OLIVARES NP ATTENDING ADDENDUM: DATE OF ADMISSION: 09/18/19 PRIMARY CARE PROVIDER: Dr. Arriaza. CONSULTING OB-DAY CARE SUPERVISOR: Dr. Nickerson. HISTORY OF PRESENT ILLNESS: The case was reviewed and discussed with Deidre Olivares NP. Ms. Merino is a 39-year-old lady who is 38 weeks , who presented to the emergency room with complaints of fever, body aches, chills, dry cough, and sore throat. She was found to have a right lower lobe infiltrate and a presentation compatible with pneumonia. PHYSICAL EXAMINATION GENERAL: She is lying in the ED stretcher, in no acute distress. VITAL SIGNS: Stable with a temperature of 97.7, heart rate is 88, respiratory rate is 21, oxygen saturation 95% on room air, blood pressure of 95/56. CHEST: Reveals breath sounds present bilaterally with crackles in the right base. CVS: Reveals normal S1, S2 with regular rate and rhythm. IMPRESSION AND PLAN: She was seen by OB and had a nonstress obtained with heart rate baseline at 135 with spontaneous accelerations up to 155. She was noted to have occasional mild contractions, irregular and Dr. Nickerson was present during that evaluation. His recommendation was for the patient to be admitted for IV hydration, start ceftriaxone and Zithromax for her pneumonia and OB service will continue to follow the patient. I am in agreement with the current management. MARICEL Valadez MD [id number]/CPS #: [id number] Jud [id number]/CPS #: [id number] YULY
[2019-09-18] MEDS: cefTRIAXone(*) 1 GM in NS 0.9% 50 ML* 50 ML IVPB SCH (17:45)
[2019-09-18] MEDS: Acetaminophen TAB* 325 MG PO PRN ×2 (17:57→22:11)
[2019-09-18] MEDS: ValACYclovir (*) 500 MG TAB PO SCH (22:02)
--- NOTE | 2019-09-18 22:08 | PN ---
Progress Note - Progress Note Date of Service: 09/18/19 Note: S: Notified by RN that pt feeling contractions Reports mild contractions every 7 minutes. Active FM, denies lof/vb RN and this CNM to bedside for NST and VE A: RNST Not actively laboring, VE: 12/31, soft Plan: NST qshift and VE prn while pt hospitalized for pneumonia.
[2019-09-19] MEDS: Acetaminophen TAB* 325 MG PO PRN ×5 (03:57→21:27)
[2019-09-19 06:05] LABS: ABS Lymphocytes 0.9 10^3/ul (1.0-4.8); ABS Monocytes 0.6 10^3/ul (0-0.8); ABS Neutrophils 9.9 10^3/ul (1.5-7.7); Hematocrit 30 % (35-47); Hemoglobin 10.1 g/dL (12.0-16.0); Lymphocyte % 7.6 %; Mean Corpuscular HGB Conc 34 g/dL (31-36); Mean Corpuscular Hemoglobin 31 pg (27-31); Mean Corpuscular Volume 90 fL (80-97); Mean Platelet Volume 8.8 fL (7.4-10.4); Platelet Count 235 10^3/uL (150-450); Red Blood Count 3.29 10^6 /uL (3.70-4.87); Red Cell Distribution Width 14 % (10-15); White Blood Count 11.4 10^3/uL (3.5-10.8)
[2019-09-19 06:12] LABS: BUN/Creatinine Ratio 8.6 (8-20); Calcium 7.5 mg/dL (8.6-10.3); EGFR African American 141.5 (>60); Potassium 3.1 mmol/L (3.5-5.0)
[2019-09-19] MEDS: ValACYclovir (*) 500 MG TAB PO SCH ×2 (07:34→21:29)
[2019-09-19] MEDS: Prenatal Vitamin TAB PO SCH (07:34)
--- NOTE | 2019-09-19 10:13 | PN ---
Progress Note - Progress Note Date of Service: 09/19/19 SOAP: Subjective: [Pt notes some improvement with breathing] Objective: [AFEB VSS] Assessment: [abdomen soft NT uterus: nontender occasional mild ctx NST ; baseline 150 + accels/moderate variability/ mild ctx every 10'] Plan: [Pt 39 yo at 38 weeks with inpatient admission for treatment of pneumonia. Pt reassured regarding occasional contraction and if labor happened would proceed with delivery. Pt will otherwise be managed with Azithromax outpatient for pneumonia once hospitalist service deems pt is stable for this.]
[2019-09-19] MEDS: Azithromycin 500 mg/250 ml NS 500 MG/250 ML BAG IVPB SCH (12:05)
[2019-09-19] MEDS ORDERED: Azithromycin 500 mg/250 ml NS 500 MG/250 ML BAG IVPB ONE (13:00)
[2019-09-19] MEDS ORDERED: Potassium Chlor TAB* 20 MEQ TAB.ER PO ONE (13:09)
[2019-09-19] MEDS: cefTRIAXone(*) 1 GM in NS 0.9% 50 ML* 50 ML IVPB SCH (15:39)
--- NOTE | 2019-09-19 18:55 | PN ---
Subjective Date of Service: 09/19/19 Interval History: Reports that she is feeling better. States that breathing is a little better. Reports fevers overnight. Denies chest pain or shortness of breath. Denies n/v /d. Family History: Unchanged from Admission Social History: Unchanged from Admission Past Medical History: Unchanged from Admission Objective Active Medications: Acetaminophen (Tylenol Tab*) 650 mg PO Q4H PRN PRN Reason: MILD PAIN or TEMP > 100.4 Last Admin: 09/19/19 17:31 Dose: 650 mg Ceftriaxone Sodium 1 gm/ (Sodium Chloride) 50 mls @ 100 mls/hr IVPB Q24H [facility] Last Admin: 09/19/19 15:39 Dose: 100 mls/hr Azithromycin (Zithromax 500 Mg/250 Ml) 500 mg in 250 mls @ 250 mls/hr IVPB Q24H [facility] Last Admin: 09/19/19 12:05 Dose: 250 mls/hr Multivitamins ( Vitamin Tab*) 1 tab PO DAILY [facility] Last Admin: 09/19/19 07:34 Dose: 1 tab Valacyclovir HCl (Valtrex 500 Mg (*)) 500 mg PO BID [facility]; Protocol Last Admin: 09/19/19 07:34 Dose: 500 mg Vital Signs - 8 hr 09/19/19 09/19/19 11:15 15:15 Temperature 97.9 F 98.7 F Pulse Rate 85 81 Respiratory 16 16 Rate Blood Pressure 92/59 98/60 (mmHg) O2 Sat by Pulse 97 97 Oximetry Oxygen Devices in Use Now: None Appearance: appears comfortable resting in bed , no acute distress Eyes: No Scleral Icterus Ears/Nose/Mouth/Throat: Clear Oropharnyx, Mucous Membranes Moist Neck: NL Appearance and Movements; NL JVP, Trachea Midline Respiratory: Symmetrical Chest Expansion and Respiratory Effort, Clear to Auscultation, - - diminshed in the bases bilat Cardiovascular: NL Sounds; No Murmurs; No JVD, No Edema Abdominal: NL Sounds; No Tenderness; No Distention Extremities: No Edema, No Clubbing, Cyanosis Skin: No Rash or Ulcers Neurological: Alert and Oriented x 3 Nutrition: Taking PO's Result Diagrams: 09/19/19 05:26 09/19/19 05:26 Microbiology and Other Data: Microbiology 09/18/19 16:36 Aerobic Blood Culture - Preliminary Blood Venous No Growth Day 1 Anaerobic Blood Culture - Preliminary No Growth Day 1 09/18/19 15:53 Aerobic Blood Culture - Preliminary Blood Venous No Growth Day 1 Anaerobic Blood Culture - Preliminary No Growth Day 1 09/18/19 12:45 Urine Culture - Final Urine No Growth (<1,000 CFU/mL) 09/18/19 12:45 Legionella Urinary Antigen - Final Urine Negative Legionella Antigen Streptococcus pneumoniae Ag Screen - Final Negative S. pneumo Antigen Assess/Plan/Problems-Billing Assessment: Ms. Merino is a 39 y.o female who is 38 weeks who presented to the ER with fever found to pneumonia. - Patient Problems (1) Pneumonia Current Visit: Yes Status: Acute Code(s): J18.9 - PNEUMONIA, UNSPECIFIED ORGANISM SNOMED Code(s): 329792089 Comment: improving - fever improving - continue azithromycin and ceftriaxone - maintain o2 saturations above 95% - use o2 as needed - encourage fluid intake - blood cultures pending (2) Current Visit: Yes Status: Acute Comment: 38 weeks - will continue to monitor non stress - heart tone Q shift (3) DVT prophylaxis Current Visit: Yes Status: Acute Code(s): Z29.9 - ENCOUNTER FOR PROPHYLACTIC MEASURES, UNSPECIFIED SNOMED Code(s): 469735294 Comment: scd's (4) Full code status Current Visit: Yes Status: Acute Code(s): Z78.9 - OTHER SPECIFIED HEALTH STATUS SNOMED Code(s): 902914806 Status and Disposition: likely discharge in the AM
[2019-09-20] MEDS: Acetaminophen TAB* 325 MG PO PRN ×3 (03:34→17:38)
[2019-09-20] MEDS: guaiFENesin 100 mg/5 ml LIQ unit dose cup PO PRN ×2 (03:44→18:31)
[2019-09-20] MEDS: ValACYclovir (*) 500 MG TAB PO SCH (08:41)
[2019-09-20] MEDS: Prenatal Vitamin TAB PO SCH (08:45)
[2019-09-20] MEDS ORDERED: Piperacillin/Tazobac ADVAN(*) 3.375 GM in NS 0.9% 100 ML* 100 ML IVPB ONE (09:41)
[2019-09-20] MEDS ORDERED: Zosyn per Pharmacy* NOTE FOLLOW UP SCH (10:00)
--- NOTE | 2019-09-20 10:02 | PN ---
Subjective Date of Service: 09/20/19 Interval History: Patient had temp 39.1 overnight. She was coughing more overnight. She is concerned about not getting better. Began to have contractions every 6-7 minutes early this morning. Passed what appeared to be mucous plug this AM. She initially thought her water broke. Family History: Unchanged from Admission Social History: Unchanged from Admission Past Medical History: Unchanged from Admission Objective Active Medications: Acetaminophen (Tylenol Tab*) 650 mg PO Q4H PRN PRN Reason: MILD PAIN or TEMP > 100.4 Last Admin: 09/20/19 03:34 Dose: 650 mg Guaifenesin (Robitussin*) 10 ml PO Q4H PRN PRN Reason: COUGH Last Admin: 09/20/19 03:44 Dose: 10 ml Azithromycin (Zithromax 500 Mg/250 Ml) 500 mg in 250 mls @ 250 mls/hr IVPB Q24H [facility] Last Admin: 09/19/19 12:05 Dose: 250 mls/hr Potassium Chloride 20 meq/ (Lactated Ringer's) 1,010 mls @ 125 mls/hr IVPB Q8H [facility] Piperacillin Sod/Tazobactam (Sod 3.375 gm/ Sodium Chloride) 100 mls @ 200 mls/ hr IVPB ONCE ONE Stop: 09/20/19 10:10 Multivitamins ( Vitamin Tab*) 1 tab PO DAILY [facility] Last Admin: 09/20/19 08:45 Dose: Not Given Pharmacy Consult (Zosyn Per Pharmacy*) 1 note FOLLOW UP .ZOSYN PER PHARMACY [facility] Valacyclovir HCl (Valtrex 500 Mg (*)) 500 mg PO BID [facility]; Protocol Last Admin: 09/20/19 08:41 Dose: 500 mg Vital Signs - 8 hr 09/20/19 03:39 Temperature 39.2 C Pulse Rate 105 Respiratory 21 Rate Blood Pressure 100/42 (mmHg) O2 Sat by Pulse 94 Oximetry Oxygen Devices in Use Now: None Appearance: alert, anxious Eyes: No Scleral Icterus Ears/Nose/Mouth/Throat: Clear Oropharnyx Neck: NL Appearance and Movements; NL JVP Respiratory: Symmetrical Chest Expansion and Respiratory Effort, - - rales RLL Cardiovascular: NL Sounds; No Murmurs; No JVD, RRR Abdominal: - - gravid, monitors in place Lymphatic: No Cervical Adenopathy Neurological: Alert and Oriented x 3 Lines/Tubes/Other Access: Clean, Dry and Intact Peripheral IV Nutrition: Taking PO's Result Diagrams: 09/19/19 05:26 09/19/19 05:26 Additional Lab and Data: Laboratory Tests 09/18/19 09/18/19 09/20/19 11:39 16:36 08:55 Lactic Acid 1.1 1.3 Vag Amniotic Fld Detect Negative Microbiology and Other Data: Microbiology 09/18/19 16:36 Aerobic Blood Culture - Preliminary Blood Venous No Growth Day 1 Anaerobic Blood Culture - Preliminary No Growth Day 1 09/18/19 15:53 Aerobic Blood Culture - Preliminary Blood Venous No Growth Day 1 Anaerobic Blood Culture - Preliminary No Growth Day 1 09/18/19 12:45 Urine Culture - Final Urine No Growth (<1,000 CFU/mL) 09/18/19 12:45 Legionella Urinary Antigen - Final Urine Negative Legionella Antigen Streptococcus pneumoniae Ag Screen - Final Negative S. pneumo Antigen Assess/Plan/Problems-Billing Assessment: Ms. Merino is a 39 y.o female who is 38 weeks who presented to the ER with fever found to pneumonia. - Patient Problems (1) Pneumonia Current Visit: Yes Status: Acute Priority: High Code(s): J18.9 - PNEUMONIA , UNSPECIFIED ORGANISM SNOMED Code(s): 849943183 Comment: - not responding well to ceftriaxone and azithro - reviewed guidelines in UTD, will switch to vanco/azithro/aztreonam - maintain o2 saturations above 95% - use o2 as needed - starting IVF - blood cultures, sputum pending (2) with 39 completed weeks gestation Current Visit: Yes Status: Acute Priority: High Code(s): Z3A.39 - 39 WEEKS GESTATION OF SNOMED Code(s): 14216641 Comment: -38.5 weeks gestation -Will discuss parameters for moving to OB -Pneumonia does not require contact or airborne isolation -If water breaks or dilated past 5 cm should be on OB floor (3) Hypokalemia Current Visit: Yes Status: Acute Priority: Medium Code(s): E87.6 - HYPOKALEMIA SNOMED Code(s): 31980856 Comment: -Started IVF due to anorexia -Supplemented KCl. (4) DVT (deep vein thrombosis) in Current Visit: Yes Status: Acute Priority: Medium Code(s): O22.30 - DEEP PHLEBOTHROMBOSIS IN , UNSPECIFIED TRIMESTER SNOMED Code(s): 22621685 Comment: -SCDs Status and Disposition: inpatient
[2019-09-20] MEDS ORDERED: Vancomycin(*) 1,000 MG in NS 0.9% 250 ML* 250 ML IVPB ONE (10:30)
[2019-09-20] MEDS: Potassium Chloride IV* 20 MEQ in Lactated Ringers 1000 ML Bag* 1,000 ML IVPB SCH ×2 (10:32→19:59)
[2019-09-20] MEDS ORDERED: Aztreonam (*) 2 GM in NS 0.9% 100 ML* 100 ML IV SCH (11:00)
[2019-09-20] MEDS ORDERED: Vancomycin per Pharmacy* NOTE FOLLOW UP SCH (11:00)
--- NOTE | 2019-09-20 11:26 | PN ---
Progress Note - Progress Note Date of Service: 09/20/19 SOAP: Subjective: [Pt more short of breath and having more contractions] Objective: [VSS Tmax >102] uterus: mild occs ctx Cervix: /-2 FHT: 140 + accels/mod variability/ Q 5-6 mild contractions/ negative decels Assessment: [Pt 39 yo at 38 + weeks with progressive unresponsive pneumonia. Pt to have change in abx regimen. Pt to be converted to vancomycin and aztreonam,] Plan: [Reviewed above pt with hospital service. Plan on transfer to OB if evidence of active labor. Cultures thus far negative. Plan on send sputum culture today to see if growth of specific organism.]
[2019-09-20] MEDS: Aztreonam (*) 2 GM in NS 0.9% 100 ML* 100 ML IV SCH ×2 (13:27→21:54)
[2019-09-20] MEDS ORDERED: Buffered Lidocaine 1% SYRIN* 1 ML/SYRINGE INTRADERM ONE (13:59)
[2019-09-20] MEDS ORDERED: OBEPIDURAL* 250 ML EPIDURAL ONE (14:09)
--- NOTE | 2019-09-20 14:10 | HP ---
General Information - Reason for Visit Labor - General Information Maternal Age: 39 Grav: 6 Para: 1 SAB: 3 IEA: 1 Estimated Due Date: 09/30/19 Determined By: LMP Maternal Blood Type and Rh: O Positive - Results this Serology/RPR Result: Non-Reactive Rubella Result: Immune HBsAg Result: Negative HIV Result: Negative GBS Culture Result: Negative Past Medical History Delivery History: See Records Pertinent Past Medical History: See Records Pertinent Past Surgical History: See Records Pertinent Family History: See Records - Antepartal Records Antepartal Records: Reviewed, Complicated by: - ongoing pneumonia Review of Systems Constitutional: Uncomfortable CV Complaint: No Respiratory: Shortness of Breath: Yes Gastrointestinal: No Nausea/Vomiting Genitourinary: No Dysuria, No Bleeding Musculoskeletal: No Complaint Neurological: No Headache Movement: Normal Exam Allergies/Adverse Reactions: Allergies Penicillins Allergy (Severe, Verified 09/18/19 10:13) Hives happened when 7 years old Vital Signs 09/19/19 09/19/19 09/19/19 15:15 19:43 23:33 Temperature 98.7 F 99.3 F Pulse Rate 81 93 Respiratory 16 22 20 Rate Blood Pressure 98/60 93/50 (mmHg) O2 Sat by Pulse 97 96 Oximetry 09/20/19 09/20/19 09/20/19 00:30 03:39 07:15 Temperature 98.4 F 102.6 F 98.7 F Pulse Rate 85 105 82 Respiratory 23 21 17 Rate Blood Pressure 101/53 100/42 91/56 (mmHg) O2 Sat by Pulse 99 94 99 Oximetry Lab Values - Entire Visit: Laboratory Tests 09/18/19 09/18/19 09/18/19 11:39 11:39 11:39 WBC 11.3 H RBC 3.78 Hgb 11.7 L Hct 34 L MCV 90 MCH 31 MCHC 34 RDW 14 Plt Count 278 MPV 8.9 Neut % (Auto) 86.9 Lymph % (Auto) 7.4 [place] % (Auto) 5.3 Eos % (Auto) 0.0 Baso % (Auto) 0.4 Absolute Neuts (auto) 9.8 H Absolute Lymphs (auto) 0.8 L Absolute Monos (auto) 0.6 Absolute Eos (auto) 0.0 Absolute Basos (auto) 0.0 Absolute Nucleated RBC 0.0 Nucleated RBC % 0.0 Sodium 129 L Potassium 3.9 Chloride 101 Carbon Dioxide 22 Anion Gap 6 BUN 7 Creatinine 0.71 Est GFR ( Amer) 112.1 Est GFR (Non-Af Amer) 92.6 BUN/Creatinine Ratio 9.9 Glucose 83 Lactic Acid 1.1 Calcium 8.3 L Total Bilirubin 0.40 AST 18 ALT 11 Alkaline Phosphatase 211 H C-Reactive Protein 147.50 H Total Protein 6.2 L Albumin 3.0 L Globulin 3.2 Albumin/Globulin Ratio 0.9 L Lipase < 10 L Urine Color Urine Appearance Urine pH Ur Specific [place] Urine Protein Urine Ketones Urine Blood Urine Nitrate Urine Bilirubin Urine Urobilinogen Ur Leukocyte Esterase Urine WBC (Auto) Urine RBC (Auto) Ur Squamous Epith Cells Urine Bacteria Urine Glucose Vag Amniotic Fld Detect Influenza A (Rapid) Influenza B (Rapid) 09/18/19 09/18/19 09/18/19 11:52 12:45 16:36 WBC RBC Hgb Hct MCV MCH MCHC RDW Plt Count MPV Neut % (Auto) Lymph % (Auto) [place] % (Auto) Eos % (Auto) Baso % (Auto) Absolute Neuts (auto) Absolute Lymphs (auto) Absolute Monos (auto) Absolute Eos (auto) Absolute Basos (auto) Absolute Nucleated RBC Nucleated RBC % Sodium Potassium Chloride Carbon Dioxide Anion Gap BUN Creatinine Est GFR ( Amer) Est GFR (Non-Af Amer) BUN/Creatinine Ratio Glucose Lactic Acid 1.3 Calcium Total Bilirubin AST ALT Alkaline Phosphatase C-Reactive Protein Total Protein Albumin Globulin Albumin/Globulin Ratio Lipase Urine Color Yellow Urine Appearance Clear Urine pH 6.0 Ur Specific [place] 1.014 Urine Protein Negative Urine Ketones 1+ A Urine Blood 2+ A Urine Nitrate Negative Urine Bilirubin Negative Urine Urobilinogen Negative Ur Leukocyte Esterase Negative Urine WBC (Auto) Trace(0-5/hpf) Urine RBC (Auto) 2+(6-10/hpf) A Ur Squamous Epith Cells Present A Urine Bacteria Absent Urine Glucose Negative Vag Amniotic Fld Detect Influenza A (Rapid) Negative Influenza B (Rapid) Negative 09/19/19 09/19/19 09/20/19 05:26 05:26 08:55 WBC 11.4 H RBC 3.29 L Hgb 10.1 L Hct 30 L MCV 90 MCH 31 MCHC 34 RDW 14 Plt Count 235 MPV 8.8 Neut % (Auto) 87.2 Lymph % (Auto) 7.6 [place] % (Auto) 4.9 Eos % (Auto) 0.0 Baso % (Auto) 0.3 Absolute Neuts (auto) 9.9 H Absolute Lymphs (auto) 0.9 L Absolute Monos (auto) 0.6 Absolute Eos (auto) 0.0 Absolute Basos (auto) 0.0 Absolute Nucleated RBC 0.0 Nucleated RBC % 0.0 Sodium 133 L Potassium 3.1 L Chloride 107 Carbon Dioxide 16 L Anion Gap 10 BUN 5 L Creatinine 0.58 Est GFR ( Amer) 141.5 Est GFR (Non-Af Amer) 117.0 BUN/Creatinine Ratio 8.6 Glucose 84 Lactic Acid Calcium 7.5 L Total Bilirubin AST ALT Alkaline Phosphatase C-Reactive Protein Total Protein Albumin Globulin Albumin/Globulin Ratio Lipase Urine Color Urine Appearance Urine pH Ur Specific [place] Urine Protein Urine Ketones Urine Blood Urine Nitrate Urine Bilirubin Urine Urobilinogen Ur Leukocyte Esterase Urine WBC (Auto) Urine RBC (Auto) Ur Squamous Epith Cells Urine Bacteria Urine Glucose Vag Amniotic Fld Detect Negative Influenza A (Rapid) Influenza B (Rapid) - Measurements Height: 5 ft 1 in Weight: 139 lb Weight in lbs: [phone] Body Mass Index (BMI): 26.2 Pre- Weight: 110 lb Weight Gained This : 29 lbs and 0 ozs - Exam Breast: Breast Exam Deferred CVA: No CVA Tenderness Extremities: No Edema Heart: Normal Rhythm/Heart Sounds HEENT: No Significant Findings Lungs: Clear Bilaterally Rectal: Rectal Exam Deferred Thyroid: No Thyromegaly - Abdominal Exam Abdomen Exam: Non-Tender - Ultrasound/Biophysical Profile Ultrasound Status: Not Done Targeted Exam Findings Cervical Exam: 4cm Effacement: 90% Station: 0 Presenting Part: Vertex Membrane Status: Bulging EFM Findings - External Monitor Findings Baseline Heart Rate: 150 External Monitor Findings: Accelerations Present, No Pattern of Variable or Late Decelerations, Variability Moderate Contractions: Regular - q4', Strong Assessment/Plan - Assessment Pt 39 yo 38 4/7 weeks with pneumonia and now active labor. - Plan Plan: IV Hydration - Pt desires epidural for pain will consults . Pt now with active labor plan on vagnal delivery, Admit - Anticipate Vaginal Delivery
[2019-09-20] MEDS ORDERED: Bupivacaine 0.25% SDV PF* 10 ML VIAL INJ ONE (14:18)
[2019-09-20] MEDS: Azithromycin 500 mg/250 ml NS 500 MG/250 ML BAG IVPB SCH (14:30)
[2019-09-20] MEDS ORDERED: Famotidine TAB* 20 MG PO PRN (14:44)
[2019-09-20] MEDS ORDERED: Lactated Ringers 1000 ML Bag* 1,000 ML IV ONE (14:44)
[2019-09-20] MEDS ORDERED: Phenylephrine 40 MCG/ML SYRINGE IV PUSH PRN (14:44)
[2019-09-20] MEDS ORDERED: EPHEDrine (Pressors)* 50 MG/ML VIAL IV PUSH PRN (14:44)
[2019-09-20] MEDS ORDERED: Sodium Citrate/Citric Acid* 15 ML UDC PO PRN (14:44)
[2019-09-20] MEDS ORDERED: OBEPIDURAL* 250 ML EPIDURAL SCH (15:00)
[2019-09-20] MEDS ORDERED: Lactated Ringers 1000 ML Bag* 1,000 ML IV SCH ×3 (15:00→18:00)
[2019-09-20] MEDS ORDERED: Oxytocin in LR* 20 UNITS/1,000 ML BAG IVPB SCH (16:00)
[2019-09-20] MEDS ORDERED: Glycerin ADULT SUPP PR PRN (17:52)
[2019-09-20] MEDS ORDERED: Dibucaine 1% 28.35 GM TUBE PR PRN (17:52)
[2019-09-20] MEDS ORDERED: Acetaminophen TAB* 325 MG PO PRN (17:52)
[2019-09-20] MEDS ORDERED: Witch Hazel PAD* JAR TOPICAL PRN (17:52)
--- NOTE | 2019-09-20 17:58 | PROCNOTE ---
[facility] OB: Delivery Note - Delivery A Date of : 09/20/19 Time of : 17:09 Sex: Male Score 1 Minute: 9 Score 5 Minutes: 9 Gestational Age in Weeks and Days at Delivery: 38 Weeks and 4 Days Delivery Method: Spontaneous Vaginal Labor: Spontaneous Did Patient attempt ?: N/A, No Previous Amniotic Fluid: Meconium Estimated Blood Loss: 400 Anesthesia/Analgesia: CEI for Labor, Other Delivered By: Monica Jernigan - Nursery Level of Nursery: Regular/Bedside - Perineum Perineal Injury: 2nd Degree Perineal Injury Comment: repair with 2.0 vicryl and 4.0 vicryl after 10 cc 1 % lidocaine - Events Delivery Events of Note: Pitocin During Labor Delivery Events of Note Comment: maternal pneumonia
[2019-09-20] MEDS: Ibuprofen TAB* 600 MG PO PRN ×2 (19:43→23:00)
[2019-09-20] MEDS: Vancomycin(*) 750 MG in NS 0.9% 250 ML* 250 ML IVPB SCH (19:59)
[2019-09-20] MEDS ORDERED: Simethicone TAB* 80 MG TAB.CHEW PO SCH (21:00)
[2019-09-21] MEDS: Docusate CAP* 100 MG PO SCH ×4 (00:09→22:34)
[2019-09-21] MEDS: Acetaminophen TAB* 325 MG PO PRN ×4 (00:09→21:20)
[2019-09-21] MEDS: Vancomycin(*) 750 MG in NS 0.9% 250 ML* 250 ML IVPB SCH ×2 (04:17→12:48)
[2019-09-21] MEDS: Aztreonam (*) 2 GM in NS 0.9% 100 ML* 100 ML IV SCH ×3 (05:57→23:08)
[2019-09-21 06:38] LABS: ABS Lymphocytes 0.9 10^3/ul (1.0-4.8); ABS Monocytes 0.3 10^3/ul (0-0.8); ABS Neutrophils 7.9 10^3/ul (1.5-7.7); Eosinophil % 0.4 %; Hematocrit 26 % (35-47); Hemoglobin 8.7 g/dL (12.0-16.0); Lymphocyte % 10.2 %; Mean Corpuscular HGB Conc 34 g/dL (31-36); Mean Corpuscular Hemoglobin 31 pg (27-31); Mean Corpuscular Volume 91 fL (80-97); Mean Platelet Volume 8.4 fL (7.4-10.4); Platelet Count 259 10^3/uL (150-450); Red Blood Count 2.81 10^6 /uL (3.70-4.87); Red Cell Distribution Width 14 % (10-15); White Blood Count 9.3 10^3/uL (3.5-10.8)
[2019-09-21 06:54] LABS: Albumin/Globulin Ratio 0.9 (1-3); BUN/Creatinine Ratio 11.3 (8-20); Calcium 7.8 mg/dL (8.6-10.3); EGFR African American 157.1 (>60); EGFR Non-African American 129.8 (>60); Globulin 2.3 g/dL (2-4); Potassium 4.2 mmol/L (3.5-5.0); Total Bilirubin 0.2 mg/dL (0.2-1.0); Total Protein 4.3 g/dL (6.4-8.9)
[2019-09-21] MEDS: guaiFENesin 100 mg/5 ml LIQ unit dose cup PO PRN ×3 (07:01→20:13)
[2019-09-21] MEDS: Potassium Chloride IV* 20 MEQ in Lactated Ringers 1000 ML Bag* 1,000 ML IVPB SCH (07:40)
[2019-09-21] MEDS: Ferrous Gluconate TAB* 324 MG TAB PO SCH ×2 (08:26→22:34)
[2019-09-21] MEDS: Prenatal Vitamin TAB PO SCH (08:26)
[2019-09-21] MEDS ORDERED: Vancomycin Trough Check NOTE FOLLOW UP ONE (11:00)
[2019-09-21] MEDS: Ibuprofen TAB* 600 MG PO PRN ×2 (11:38→17:44)
[2019-09-21] MEDS: Azithromycin 500 mg/250 ml NS 500 MG/250 ML BAG IVPB SCH (15:46)
--- NOTE | 2019-09-21 17:25 | CONSULT ---
Subjective Date of Service: 09/21/19 Interval History: Pt gave yesterday evening. Now afebrile over 24 hours and leukocytosis resolved. Seems she defervesced hours before her first doses of vanc/aztreonam. Pt reports significant improvement in SOB since giving , and her cough and chills are decreasing in frequency. Review of Systems - Measurements Intake and Output: Intake and Output Last 24 Hours 09/19/19 09/20/19 09/21/19 09/22/19 06:59 06:59 06:59 06:59 Intake Total 4200 3880 600 1935 Output Total 700 Balance 4200 3880 -100 1935 Weight 138 lb 139 lb Intake: IV Fluids 2500 50 350 1935 ABX - VANCOMYCIN 250 250 Azithromycin 100 Aztreonam 100 100 LR w/20K 1485 IVPB 250 ABX - VANCOMYCIN 250 Oral 1700 3830 Output: Urine 700 Other: Estimated Void Medium Medium # Bowel Movements 0 0 Estimated Stool Amount Medium # Voids 1 3 Objective Active Medications: Acetaminophen (Tylenol Tab*) 650 mg PO Q4H PRN PRN Reason: MILD PAIN or TEMP > 100.4 Last Admin: 09/21/19 16:44 Dose: 650 mg Citric Acid/Sodium Citrate (Bicitra*) 15 ml PO ONCE PRN PRN Reason: DYSPEPSIA Dibucaine (Nupercainal 1% Oint*) 1 applic DE QID PRN PRN Reason: DISCOMFORT Last Admin: 09/20/19 22:37 Dose: 1 applic Docusate Sodium (Colace Cap*) 100 mg PO TID [facility] Last Admin: 09/21/19 14:36 Dose: 100 mg Ephedrine Sulfate (Ephedrine Sulfate (Pressors)*) 10 mg IV PUSH Q5M PRN PRN Reason: hypotension Famotidine (Pepcid Tab*) 20 mg PO ONCE PRN PRN Reason: DYSPEPSIA Ferrous Gluconate (Fergon Tab*) 324 mg PO BID [facility] Last Admin: 09/21/19 08:26 Dose: 324 mg Glycerin (Glycerin Adult Supp*) 1 supp DE ONCE PRN PRN Reason: CONSTIPATION Guaifenesin (Robitussin*) 10 ml PO Q4H PRN PRN Reason: COUGH Last Admin: 09/21/19 11:42 Dose: 10 ml Azithromycin (Zithromax 500 Mg/250 Ml) 500 mg in 250 mls @ 250 mls/hr IVPB Q24H [facility] Last Admin: 09/21/19 15:46 Dose: 250 mls/hr Aztreonam 2 gm/ Sodium (Chloride) 100 mls @ 100 mls/hr IV 0430,1230,2030 [facility] Last Admin: 09/21/19 14:36 Dose: 100 mls/hr Vancomycin HCl 1,000 mg/ (Sodium Chloride) 250 mls @ 166.667 mls/hr IVPB Q8H [facility] Ibuprofen (Motrin Tab*) 600 mg PO Q6H PRN PRN Reason: PAIN - MILD Last Admin: 09/21/19 11:38 Dose: 600 mg Multivitamins ( Vitamin Tab*) 1 tab PO DAILY [facility] Last Admin: 09/21/19 08:26 Dose: 1 tab Pharmacy Consult (Vancomycin Per Pharmacy*) 1 note FOLLOW UP .VANC PER PHARMACY APRIL; Protocol Pharmacy Profile Note (Vancomycin Trough Check) 1 note FOLLOW UP ONCE ONE Stop: 09/23/19 11:31 Phenylephrine HCl (Neosynephrine 40 Mcg/Ml Syrin*) 80 mcg IV PUSH Q3M PRN PRN Reason: hypotension Witch Mariam (Tucks*) 1 pad TOPICAL .PRN PRN PRN Reason: DISCOMFORT Last Admin: 09/20/19 22:37 Dose: 1 pad Vital Signs - 8 hr 09/21/19 09/21/19 09/21/19 09:43 11:23 11:47 Temperature 99.7 F 99.7 F 99.9 F Pulse Rate 112 103 103 Respiratory 21 20 Rate Blood Pressure 98/61 105/58 (mmHg) O2 Sat by Pulse 97 95 100 Oximetry 09/21/19 09/21/19 15:41 17:06 Temperature 98.3 F 98.7 F Pulse Rate 96 Respiratory 24 Rate Blood Pressure 99/60 (mmHg) O2 Sat by Pulse 98 Oximetry Oxygen Devices in Use Now: None Appearance: well appearing woman in NAD, able to speak in full sentences, nontoxic Eyes: No Scleral Icterus Ears/Nose/Mouth/Throat: NL Teeth, Lips, Gums, Clear Oropharnyx Neck: NL Appearance and Movements; NL JVP, Trachea Midline Respiratory: Symmetrical Chest Expansion and Respiratory Effort, Clear to Auscultation Cardiovascular: NL Sounds; No Murmurs; No JVD, RRR Extremities: No Edema Result Diagrams: 09/21/19 06:26 09/21/19 06:26 Additional Lab and Data: Laboratory Tests 09/18/19 09/18/19 09/20/19 11:39 16:36 08:55 Lactic Acid 1.1 1.3 Vag Amniotic Fld Detect Negative Microbiology and Other Data: Microbiology 09/18/19 16:36 Aerobic Blood Culture - Preliminary Blood Venous No Growth Day 1 Anaerobic Blood Culture - Preliminary No Growth Day 1 09/18/19 15:53 Aerobic Blood Culture - Preliminary Blood Venous No Growth Day 1 Anaerobic Blood Culture - Preliminary No Growth Day 1 09/18/19 12:45 Urine Culture - Final Urine No Growth (<1,000 CFU/mL) 09/18/19 12:45 Legionella Urinary Antigen - Final Urine Negative Legionella Antigen Streptococcus pneumoniae Ag Screen - Final Negative S. pneumo Antigen Assessment/Plan - Billing Assessment: Ms. Merino is a 39 y.o female s/p vaginal delivery (09/21) who presented to the ER with fever, fatigue, and cough, found with RLL consolidation on CXR. Pt was broadened from CTX/azithro to vanc/aztreonam/azithro, but I suspect her continued fever was expected, as she had been on antibiotics < 48 hours. # Community-acquired PNA by cough, fever, leukocytosis, and consolidation on CXR. - s/p CTX (09/18 - 09/19), azithro 500mg IV daily for 3 days - vanc/aztreonam (09/20 - ) - if patient remains afebrile overnight, would switch IV meds to oral Augmentin tomorrow (unless contraindication, per Ob), last day 09/26 for total 7 day course - she has completed a course of azithromycin Thank you for allowing me to participate in the care of your patient.
[2019-09-21] MEDS ORDERED: Vancomycin(*) 1,000 MG in NS 0.9% 250 ML* 250 ML IVPB SCH (20:00)
[2019-09-21] MEDS: Benzocaine/Menthol LOZ* 1 LOZENGE MT PRN (23:07)
[2019-09-22] MEDS: Ibuprofen TAB* 600 MG PO PRN ×5 (00:01→23:47)
[2019-09-22] MEDS: guaiFENesin 100 mg/5 ml LIQ unit dose cup PO PRN ×7 (00:02→23:47)
[2019-09-22] MEDS: Acetaminophen TAB* 325 MG PO PRN ×5 (02:17→23:47)
[2019-09-22] MEDS: Benzocaine/Menthol LOZ* 1 LOZENGE MT PRN (02:18)
[2019-09-22] MEDS ORDERED: Azithromycin TAB* 250 MG PO ONE (05:17)
--- NOTE | 2019-09-22 05:21 | PN ---
Progress Note - Progress Note Date of Service: 09/22/19 Note: Called by RN that patient PIV came out. Review of notes indicate that plan was to transition to PO abx today if remained afebrile. Additionally, broadening to vanco/aztreonam may have been premature since she was on CTX <48hrs but was felt to be the safest option. PCN allergy noted. Changed to PO cedinir and last dose (04/05) of azythromycin. Pt to be monitored for any allergic rxn to cephalosporin [facility] referenced for medication safety while breast feeding.
[2019-09-22] MEDS: Cefdinir cap* 300 MG CAP PO SCH ×2 (05:32→18:15)
[2019-09-22] MEDS: Prenatal Vitamin TAB PO SCH (08:25)
[2019-09-22] MEDS: Docusate CAP* 100 MG PO SCH ×3 (08:25→20:26)
[2019-09-22] MEDS: Ferrous Gluconate TAB* 324 MG TAB PO SCH ×2 (08:25→20:26)
[2019-09-23] MEDS: Acetaminophen TAB* 325 MG PO PRN ×2 (04:28→09:12)
[2019-09-23] MEDS: guaiFENesin 100 mg/5 ml LIQ unit dose cup PO PRN ×2 (04:28→09:13)
[2019-09-23] MEDS: Cefdinir cap* 300 MG CAP PO SCH (06:10)
[2019-09-23] MEDS: Ibuprofen TAB* 600 MG PO PRN (06:18)
[2019-09-23] MEDS: Prenatal Vitamin TAB PO SCH (08:36)
[2019-09-23] MEDS: Docusate CAP* 100 MG PO SCH (08:36)
[2019-09-23] MEDS: Ferrous Gluconate TAB* 324 MG TAB PO SCH (08:36)
[2019-09-23] MEDS ORDERED: Vancomycin Trough Check NOTE FOLLOW UP ONE (11:30)
[2019-09-23 12:02] VITALS: BP 98/61
== END 2019-09-23 13:00 | disposition home or self-care (01) | DRG 560 ==
LOC: ED 10:05 → MED 15:38 → MCHOB 09-20 12:34 → OBSVTOIN 09-20 12:35 → MCHOB 09-22 10:08
PROVIDERS: ADMIT Internal Medicine; ATTEND Obstetrics & Gynecology
PROC: 10E0XZZ Delivery of Products of Conception, External Approach (ICD-10-PCS; principal; 2019-09-20)
PROC: 0KQM0ZZ Repair Perineum Muscle, Open Approach (ICD-10-PCS; 2019-09-20)
DX: O60.23X0 Term delivery with preterm labor, third trimester, not applicable or unspecified (principal); J18.1 Lobar pneumonia, unspecified organism; Z37.0 Single live birth; O87.1 Deep phlebothrombosis in the puerperium; I82.409 Acute embolism and thrombosis of unspecified deep veins of unspecified lower extremity; O99.52 Diseases of the respiratory system complicating childbirth; O70.1 Second degree perineal laceration during delivery; O77.0 Labor and delivery complicated by meconium in amniotic fluid; O99.284 Endocrine, nutritional and metabolic diseases complicating childbirth; E05.90 Thyrotoxicosis, unspecified without thyrotoxic crisis or storm; O99.344 Other mental disorders complicating childbirth; F41.9 Anxiety disorder, unspecified; E87.6 Hypokalemia; O90.81 Anemia of the puerperium; D64.9 Anemia, unspecified; Z3A.38 38 weeks gestation of pregnancy
CPT/HCPCS: 36415; 71046; 80048; 80053; 80202; 81003; 81015; 83605; 83690; 84112; 85025; 86140; 87040; 87070; 87086; 87205; 87899; 96374; 99284; A9270-GY; G0378; J0456; J0696; J2543; J3370; J3480; J3490